=== PATIENT | female | born 1995 | race Caucasian/White ===

== ENCOUNTER 2025-05-03 13:04 | Emergency (ER) | payer OTHER, SELFPAY ==
--- OUTSIDE RECORDS SUMMARY | 2025-05-03 13:06 | XMS_ITS | Encounter Summary ---
Author Organization [facility] Address [address] [place] [address] Care Team Providers Care Residential Driver Name Role Phone Kristi Zaldivar PA-C Primary Care Provider [phone] Encounter Details Date Type Department Care Team (Latest Contact Info) Description 01/08/1998 Orders Only Aamir Crump MD [facility] [address] [place] [address] Social History Tobacco Use Types Packs/Day Years Used Date Smoking Tobacco: Never Assessed Comments Unknown Sex and Gender Information Value Date Recorded Sex Assigned at Not on file Legal Sex Female 4:30 AM CDT Gender Identity Not on file Sexual Orientation Not on file documented as of this encounter Plan of Treatment Not on file documented as of this encounter Visit Diagnoses Not on filedocumented in this encounter Care Teams Residential Driver Relationship Specialty Start Date End Date Kristi Zaldivar PA-C [address] [place] [address] PCP - General Physician Administration Dean 07/21/22 documented as of this encounter
--- OUTSIDE RECORDS SUMMARY | 2025-05-03 13:06 | XMS_ITS | Clinical Summary ---
Author Organization [facility] Address [address] [place] [id number] Care Team Providers Care National Sales Name Role Phone Pcp, No Primary Care Provider Unavailabl e Allergies Active Allergy Reactions Criticality Noted Date Comments Amoxicillin GI Upset Low 04/01/2018 Medications No known medications Social History Tobacco Use Types Packs/Day Years Used Date Smoking Tobacco: Every Day Smokeless Tobacco: Current Alcohol Use Standard Drinks/Week Comments Yes 0 (1 standard drink = 0.6 oz pur e alcohol) weekly Interpersonal Safety Answer Date Record ed Are you being hit, kicked, p ushed or yelled at (see row info)? No 01/24/2024 Interpersonal Safety Abuse 12 - 18 Not on file 01/24/2024 Interpersonal Safety Ambulatory Vulnerability No t on file 01/24/2024 Comments No Sex and Gender Information Value Date Recorded Sex Assigned at Not on file Legal Sex Female 5:27 AM TOY PAINTER Gender Identity Not on file Sexual Orientation Not on file Obstetrics History Last Filed Vital Signs Vital Sign Reading Time Taken Comments Blood Pressure 133/83 01/24/2024 1:38 PM CDT Pulse 75 01/24/2024 1:38 PM CDT Temperature 36.7 C (98.1 F) 01/24/2024 11:11 AM CDT Respiratory Rate 16 01/24/2024 1:38 PM CDT Oxygen Saturation 97% 01/24/2024 1:38 PM CDT Inhaled Oxygen Concentration - - Weight 79.8 kg (176 lb) 01/24/2024 11:11 AM CDT Height 158.1 cm (5' 2.25) 01/24/2024 11:11 AM C DT Body Mass Index 31.93 01/24/2024 11:11 AM CDT Plan of Treatment Health Maintenance Due Date Last Done Comments Tetanus booster 2006 Depression screening for age 12+ 2007 HIV for age 15-65 2010 BMI (ht and wt on same day) for age 18+ 2013 Hepatitis C screening for ag e 18-79 2013 Hepatitis B series for 19+ ( 1 of 3 - 19+ 3-dose series) 2014 Pap test for age 21-65 2016 COVID-19 vaccine series (2023- season) 2024 12/25/2020 Influenza Vaccine (#1) 2025 Pneumococcal series for age 6-49 Aged Out No longer eligible based on patient's age to complete this topic Insurance [facility] [facility] [employer] Care Teams National Sales Relationship Specialty Start Date End Date Pcp, No . PCP - General 01/24/24
--- OUTSIDE RECORDS SUMMARY | 2025-05-03 13:06 | XMS_ITS | Encounter Summary ---
Author Organization [facility] Address [address] [place] [address] Care Team Providers Care Cane Packer Name Role Phone Kristi Zaldivar PA-C Primary Care Provider [phone] Encounter Details Date Type Department Care Team (Late st Contact Info) Description 11/29/1997 Orders Only [facility] Frandy Quispe MD [address] [id number] Social History Tobacco Use Types Packs/Day Years [...] on filedocumented in this encounter Care Teams Cane Packer Relationship Specialty Start Date End Date Kristi Zaldivar PA-C [address] [place] [address] PCP - General Physician Field Interviewer 07/21/22 documented as of this encounter
--- OUTSIDE RECORDS SUMMARY | 2025-05-03 13:06 | XMS_ITS | Clinical Summary ---
Author Organization [facility] Address [address] [place] [address] Care Team Providers Care Mobile Qa Tester Name Role Phone Kristi Zaldivar PA-C Primary Care Provider + [phone] Source Comments You are receiving this document as you are listed as the primary care provider,follow-up provider, or the patient has been referred to you for consultation.This is in compliance with the Medicare and[employer] [employer] EHR Incentive Program,which states Providers who transition their patient to another setting of careor provider of care or refers their patient to another provider of care shouldprovide summary care record for each transition of care or referral. [employer] Allergies Active Allergy Reactions Criticality Noted Date Comments Azithromycin Medications No known medications Active Problems Problem Noted Date Diagnosed Date Irregular menstruation 07/30/2022 Immunizations Immunization Administration Dates Next Due 4vHPV (Gardasil) 05/08/2008 DTP-Hib (Tetramune) 04/10/1996,1995,1994 DTaP 05/18/2001,12/05/1996 HepB Ped/Adol (0-18 yrs) 1995,1995,1 Hib (HbOC) 12/05/1996 Influenza IIV4 (Quadrivalent) 0.5mL (12396) 07/20 Ryan COVID-19 Vaccine 12/25/2020 MCV4 (Menactra) 05/08/2008 MMR 05/18/2001,12/05/1996 OPV, Trivalent (Orimune or tOPV) 04/10/1996,12/18,1995 PCV20 ([id number]) 07/30/2022 Polio, Unspecified Formulation 05/18/2001 Td (7+ yrs) 05/08/2008 Tdap 07/30/2022 Social History Tobacco Use Types Packs/Day Years Used Date Smoking Tobacco: Every Day Cigarettes Tobacco Cessation:Ready to Q uit: Not Asked; Counseling Given: Not Answered Alcohol Use Standard Drinks/Week Comments Yes 0 (1 standard drink = 0.6 oz pur e alcohol) 4 per week Comments No Sex and Gender Information Value Date Recorded Sex Assigned at Not on file Legal Sex Female 4:30 AM CDT Gender Identity Not on file Sexual Orientation Not on file Last Filed Vital Signs Vital Sign Reading Time Taken Comments Blood Pressure 121/77 07/30/2022 1:49 PM WASH HELPER Pulse 73 07/30/2022 1:49 PM WASH HELPER Temperature 36.7 C (98.1 F) 07/21/2022 6:45 PM CDT Respiratory Rate 14 07/21/2022 6:45 PM CDT Oxygen Saturation 100% 07/21/2022 6:45 PM CDT Inhaled Oxygen Concentration - - Weight 79 kg (174 lb 3.2 oz) 07/30/2022 1:49 PM WASH HELPER Height - - Body Mass Index - - Plan of Treatment Health Maintenance Due Date Last Done Comments Cervical Cancer Screening Due 1995 Hep C Screening (Preventive Services) 1995 HPV Vaccine (2 - 2-dose series) 11/08/2008 05/08/2008 HIV Screening (Preventive Services) 2011 Adult Preventive Visit 2013 COVID-19 Vaccine ( season) 2024 12/25/2020 Influenza Vaccine (#1) 2025 07/30/2022 DTaP/Tdap/Td Vaccine (7 - Tdap) 07/30/2032 07/30/2022, 05/08/2008, 05/18/2001, Additional history exists Zoster/Shingles Vaccine (1 of 2) 2045 HepB Vaccine Completed 1995, 02/1996, 1995 Hib Vaccine Completed 12/05/1996, 03/20, 1995, Additional history exists IPV (Polio) Vaccine Completed 05/18/2001, 04/10/1996, 1995, Additional history exists MCV4 Vaccine Aged Out 05/08/2008 No longer eligi ble based on patient's age to complete this topic Pneumococcal Vaccine Completed 07/30/2022 HepA Vaccine Aged Out No longer eligi ble based on patient's age to complete this topic Meningococcal B Vaccine Aged Out No l onger eligible based on patient's age to complete this topic Insurance [facility] Care Teams Mobile Qa Tester Relationship Specialty Start Date End Date Kristi Zaldivar PA-C [address] [place] [address] PCP - General Physician Fish Boning Machine Feeder 07/21/22
--- OUTSIDE RECORDS SUMMARY | 2025-05-03 13:06 | XMS_ITS | Encounter Summary ---
Author Organization [facility] Address [address] [place] [address] Care Team Providers Care Fur Joiner Name Role Phone Kristi Zaldivar PA-C Primary Care Provider [phone] Encounter Details Date Type Department Care Team (Latest Contact Info) Description 10/10/1997 Orders Only Aamir Crump MD [facility] [address] [place] [address] Social History Tobacco Use Types Packs/Day Years [...] on filedocumented in this encounter Care Teams Fur Joiner Relationship Specialty Start Date End Date Kristi Zaldivar PA-C [address] [place] [address] PCP - General Physician Wine Consultant 07/21/22 documented as of this encounter
--- OUTSIDE RECORDS SUMMARY | 2025-05-03 13:06 | XMS_ITS | Encounter Summary ---
Author [facility] Address [address] [place] [address] Care Team Providers Care Home Economics Extension Worker Name Role Phone Kristi Zaldivar PA-C Primary Care Provider + [phone] Encounter Details Date Type Department Care Team (Latest Contact Info) Description 08/21/1997 Office Visit Radha Cohen, INTELLECTUAL PROPERTY LAWYER, PAVING CONTRACTOR [address] [facility] [address] Social History Tobacco Use Types Packs/Day Years Used Date Smoking Tobacco: Never Assessed Comments Unknown Sex and Gender Information Value Date Recorded Sex Assigned at Not on file Legal Sex Female 4:30 AM CDT Gender Identity Not on file Sexual Orientation Not on file documented as of this encounter Progress Notes * Radha Cohen - 08/21/1997 12:00 AM CSTS. This 2 yr. old girl is new to our clinic, previous care at [facility] in [place]. She is here today because of fever which started on Tuesday, running a Temp. 102 to 103 Tuesday and Tuesday. Temp. is down this morning, but did develop some full blown cold sx's last night with rhinitis, hoarse cough, and some mild diarrhea. She has had a hx of ear infections in the past, last one was 1996. No medication allergies. Had her last dose of Motrin last night. Also had Triaminic. O. WD 2 yr. old in [facility]. Wt. is 25 1/2 lbs. Temp. 99.9. Eyes are clear. Ears - Rt TM is Neg. Lt. canal is filled with wax. Attempted to remove this with a cerumen loop that was too deep. Ear wash was attempted, but only part of the wax was able to remove, portion of the drum able to see appeared Nl.Nose is congested. Pharynx is slightly mucus like,but not inflamed. Neck is Neg. Chest is clear. She has an occasional hoarse sounding cough. A. URI, Cerumen Impaction On Lt. P. Continue with symptomatic treatment, including raising the head of the bed and adding a vaporizor in the room. Mom to use Debrox Ear Drops in the Lt canal to help soften the wax. Send for records from [facility] and f/u prn. cc: TER SOUSAPHONES documented in this encounter Plan of Treatment Not on file documented as of this encounter Visit Diagnoses Not on filedocumented in this encounter Care Teams Home Economics Extension Worker Relationship Specialty Start Date End Date Kristi Zaldivar PA-C [address] [place] [address] PCP - General Physician Loan Processor 07/21/22 documented as of this encounter
--- OUTSIDE RECORDS SUMMARY | 2025-05-03 13:06 | XMS_ITS | Encounter Summary ---
Author Organization [facility] Address [address] [place] [address] Care Team Providers Care Special Procedure Tech Name Role Phone Kristi Zaldivar PA-C Primary Care Provider + [phone] Encounter Details Date Type Department Care Team (Latest Contact Info) Description 10/10/1997 Office Visit Aamir Crump MD [facility] [address] [place] [address] Social History Tobacco Use Types Packs/Day Years Used Date Smoking Tobacco: Never Assessed Comments Unknown Sex and Gender Information Value Date Recorded Sex Assigned at Not on file Legal Sex Female 4:30 AM CDT Gender Identity Not on file Sexual Orientation Not on file documented as of this encounter Progress Notes * Aamir Crump - 10/10/1997 12:00 AM CSTS: EARACHE. Brianda has had a cold for a month and now she has an earache and fever. She has had a reaction to Zithromax with severe vomiting. No other medicine problems. She is taking Triaminic and Tylenol. O: WEIGHT: 25-1/4. TEMP: 101.2. HEENT: purulent drainage in the nose, down the throat. NECK: normal. CHEST: clear. RIGHT EAR: has wax, possible red TM. Hard wax in the left ear. A: Possible otitis, ear wax, purulent rhinitis. P: Bactrim, 1 tsp. twice a day for 2 weeks. Come back in about 2 weeks or prn. Debrox for ear wax. cc: NER SIGNS documented in this encounter Plan of Treatment Not on file documented as of this encounter Visit Diagnoses Not on filedocumented in this encounter Care Teams Special Procedure Tech Relationship Specialty Start Date End Date Kristi Zaldivar PA-C [address] [place] [address] PCP - General Physician Social Services Specialist 07/21/22 documented as of this encounter
[2025-05-03 13:17] VITALS: BP 145/87; PULSE 85; RESP 18; TEMP 36.1; O2SAT 99; BMI 30.2
--- NOTE | 2025-05-03 13:59 | ED.GENADULT ---
HPI - General Adult General Chief complaint: Unspecified Complaint, Adult Stated complaint: Reaction to meds Time Seen by Provider: 05/03/25 13:38 History of Present Illness HPI narrative: Patient reports increased anxiety recently she has a history of anxiety depression. She also has premenstrual dysphoric disorder. The patient is typically on fluoxetine and hydroxyzine. That has not been as effective as it has been. She has no suicide ideation or plan. She has thus mental health professional she sees in [place], sees Ms. Begum in [place] for primary care. She is with her family that is very supportive she does report smoking marijuana and does drink daily but not more than a couple of drinks she reports. She has taken no other illicit drugs. She denies chest pain, breathing problem, injury. Related Data Home Medications ?Medication ?Instructions ?Recorded ?Confirmed biotin 10 mg-collagen 50 cap PO 02/18/25 02/18/25 mg-keratin 500 au-xncwrfopcgg-znlvvie capsule cholecalciferol (vitamin D3) 25 25 mcg PO QDAY 02/18/25 02/18/25 mcg (1,000 unit) capsule magnesium oxide 500 mg capsule 500 mg PO QDAY 02/18/25 02/18/25 Previous Rx's ?Medication ?Instructions ?Recorded fluoxetine 10 mg capsule 10 mg PO QDAY #7 caps 02/18/25 gabapentin 300 mg capsule 300 mg PO QHS #90 caps 02/18/25 hydroxyzine HCl 25 mg tablet 25 - 50 mg (1 - 2 x 25 mg) PO TID 02/18/25 PRN anxiety #60 tabs fluoxetine 20 mg capsule 20 mg PO QDAY #30 caps 05/02/25 Allergies Allergy/AdvReac Type Severity Reaction Status Date / Time No Known Drug Allergies Allergy Verified 02/18/25 10:41 Review of Systems Status of ROS: Reports: 6 or more systems reviewed and unremarkable except as noted in History and below PFSH PFSH Family History Father Diabetes High blood pressure High cholesterol Mother Rectal cancer Social History What is your current living situation?: I presently have a place to live Problems where you live: no known problems In the past 12 months, utilities in danger of being shut off: no In past 12 months, lack of transportation kept you from medical appts, meetings, work, or getting things needed for daily living: no In the past 12 mos, have been you worried that your food would run out before you had money to buy more?: never true In the past 12 mos, the food you bought just didn't last and you didn't have money to buy more?: never true Smoking Status: Current every day smoker Non-prescribed substance use: marijuana (any form) How often does anyone, including family, friends and others, physically hurt you: never How often does anyone, including family, friends and others, insult or talk down to you: never How often does anyone, including family, friends and others, threaten you with harm: never How often does anyone, including family, friends and others, scream or curse at you: never Exam Narrative: Exam Narrative: Objective: Vital signs are within normal limits Alert orient x3, mental status appears normal She is showing insight and her situation states that her anxiety has been worse. Denies chest pain or breathing problem. Neurologic is nonfocal. Const: Vital Signs, click to edit/add: Vital Signs - 24 hr 05/03/25 13:17 Temperature 97.0 F L Pulse Rate [Pulse Oximeter] 85 Respiratory Rate 18 Blood Pressure [Ri ght Upper Arm] 145/87 H Pulse Oximetry 99 Oxygen Delivery Me thod Room Air Course Vital Signs Vital signs: Initial Vital Signs Temperature 97.0 F L 05/03/25 13:17 Temperature Source Temporal Artery Scan 05/03/25 13:17 Pulse Rate 85 05/03/25 13:17 Pulse Rhythm Regular 05/03/25 13:17 Respiratory Rate 18 05/03/25 13:17 Blood Pressure 145/87 H 05/03/25 13:17 Blood Pressure Mean 106 H 05/03/25 13:17 Blood Pressure Position Sitting 05/03/25 13:17 Pulse Oximetry 99 05/03/25 13:17 Oxygen Delivery Method Room Air 05/03/25 13:17 Vital Signs Temperature 97.0 F L 05/03/25 13:17 Pulse Rate 85 05/03/25 13:17 Respiratory Rate 18 05/03/25 13:17 Blood Pressure 145/87 H 05/03/25 13:17 Pulse Oximetry 99 05/03/25 13:17 Oxygen Delivery Method Room Air 05/03/25 13:17 Temperature 97.0 F L 05/03/25 13:17 Pulse Rate 85 05/03/25 13:17 Respiratory Rate 18 05/03/25 13:17 Blood Pressure 145/87 H 05/03/25 13:17 Pulse Oximetry 99 05/03/25 13:17 Oxygen Delivery Method Room Air 05/03/25 13:17 Medications Administered Medications: Discontinued Medications Generic Name Dose Route Start Last Admin Trade Name Fretu PRN Reason Stop Dose Admin Lorazepam 1 mg 05/03/25 13:57 05/03/25 14:04 Lorazepam 1 Mg Tablet PO 05/03/25 13:58 1 mg ONCE ONE Administration Medical Decision Making MDM Narrative Medical decision making narrative: 29-year-old female with a history of anxiety depression with increasing anxiety. Will give her a dose Ativan 1 mg now and then 0.5 mg t.i.d. to q.i.d. over the next couple of days, would stop the Vistaril for this period of time. Update her mental health provider. Would recommend stopping marijuana as that can sometimes contribute to these symptoms. She will discuss her drinking and her marijuana use and anxiety with her primary care doctor in the next couple of weeks. Discharge Plan Discharge Clinical Impression: Anxiety and depression Patient Disposition: Home w/ Parent or Adult Condition: Stable Additional Instructions: Hold the Vistaril while you are taking Ativan. See your regular doctor within the next week, recommend update your primary care mental health professional within the next couple of days. Return as needed. Activity Level: Light activity Discharge Diet: Regular Prescriptions: No Action cholecalciferol (vitamin D3) 25 mcg (1,000 unit) capsule 25 mcg PO QDAY magnesium oxide 500 mg capsule 500 mg PO QDAY lpwohu-tgnk-nzin-levomef-silic 10-50-500-0.5 mg capsule PO fluoxetine 10 mg capsule 10 mg PO QDAY Qty: 7 0RF Rx Instructions: 1 po qd for 1 week then increase to 20mg. hydroxyzine HCl 25 mg tablet 25 - 50 mg PO TID PRN (Reason: anxiety) Qty: 60 0RF gabapentin 300 mg capsule 300 mg PO QHS Qty: 90 1RF fluoxetine 20 mg capsule 20 mg PO QDAY Qty: 30 0RF Follow Up/Referrals: BegumIlan frost PA-C [Primary Care Provider, Family Practice] Stand Alone Forms: MyHealth Info Instructions
== END 2025-05-03 14:14 | disposition home or self-care (01) ==
PROVIDERS: Emergency Provider Family Medicine; PCP Physician Assistant Medical
DX: F41.8 Other specified anxiety disorders (principal)
CPT/HCPCS: 99283; 99284; A9270

== ENCOUNTER 2025-05-13 10:33 | Outpatient (CLI) | payer OTHER, SELFPAY | END 2025-05-13 10:34 | disposition home or self-care (01) | PROVIDERS: PCP Physician Assistant Medical; Visit Provider Physician Assistant | DX: E28.2 Polycystic ovarian syndrome (principal); Z13.6 Encounter for screening for cardiovascular disorders | CPT/HCPCS: 80061; 84443 ==